=== PATIENT | male | born 1960 | race Caucasian/White ===

== ENCOUNTER → 2018-04-03 | Outpatient (CLI) | payer OTHER | LOC: M PAIN 14:30 | DX: Z53.29 Procedure and treatment not carried out because of patient's decision for other reasons (principal) ==

== ENCOUNTER → 2018-04-10 | Outpatient (CLI) | payer OTHER | LOC: M ONCR 12:52 | DX: C25.9 Malignant neoplasm of pancreas, unspecified (principal); C79.51 Secondary malignant neoplasm of bone | CPT/HCPCS: G0463 ==